=== PATIENT | male | born 1990 | race Caucasian/White ===

== ENCOUNTER 2021-12-13 18:51 | Inpatient (IN) | payer MEDICAID, OTHER ==
[~2021-12-13] VITALS: Ht 172.7 cm; Wt 90.7 kg
[2021-12-13] MEDS ORDERED: PHENOBARBITAL IV NR (20:30)
[2021-12-13] MEDS ORDERED: SODIUM CHLORIDE 0.9% IV NR (20:30)
[2021-12-13 20:49] LABS: BASOPHILS % 0.4 % (0.0-2.0); EOSINOPHILS % 0.4 % (0.0-5.0); HEMATOCRIT. 37.6 % (42.0-52.0); HEMOGLOBIN. 12.2 g/dL (14.0-18.0); LYMPHOCYTES % 8.7 % (20.0-50.0); MEAN CORPUSCULAR HEMOGLOBIN 25.1 pg (28.0-32.0); MEAN CORPUSCULAR VOLUME 77.3 fL (80.0-94.0); MEAN PLATELET VOLUME 9.4 fl (7.4-10.4); MONOCYTES % 10.4 % (2.0-8.0); NEUTROPHILS % 80.1 % (40.0-76.0); PLATELET 54 x1000/uL (130-400); RED BLOOD CELL COUNT 4.87 mill/uL (4.7-6.1); RED CELL DISTRIBUTION WIDTH 17.6 % (11.6-14.6)
[2021-12-13 20:53] LABS: CHLORIDE 90 mEq/L (98-107)
[2021-12-13 20:55] LABS: INR 1.2; PROTHROMBIN TIME 13.1 sec (9.6-11.0)
[2021-12-13 20:56] LABS: ETHANOL BLOOD < 10 mg/dL
[2021-12-13] MEDS ORDERED: LORAZEPAM 2MG/ML CPJ IV ONE ×2 (21:15→22:00)
[2021-12-13] MEDS: LORAZEPAM 2MG/ML CPJ IV NR ×2 (21:20→21:30)
[2021-12-13] MEDS ORDERED: POTASSIUM CHLORIDE INJ 40 MEQ in DEXT 5% WATER 250 ML IV ONE (21:45)
[2021-12-13] MEDS ORDERED: PHENOBARBITAL INJ 260 MG in SODIUM CHLORIDE 0.9% 100 ML IV NR (21:45)
[2021-12-13] MEDS: KCL 20MEQ/100ML X 2 FOR TOTAL KCL 40MEQ/200ML IV SCH ×2 (22:06→23:55)
[2021-12-13] MEDS ORDERED: HALOPERIDOL LACTATE 5MG/ML VIAL IM ONE (23:30)
[2021-12-13] MEDS ORDERED: MAGNESIUM 2 G PREMIX 50 ML IV ONE (23:30)
[2021-12-14] VITALS (7 sets, daily range): BP systolic 121–135; BP diastolic 70–80
[2021-12-14] MEDS: LORAZEPAM 2MG/ML CPJ IV PRN ×2 (02:13→18:10)
[2021-12-14] MEDS ORDERED: HYDROCODONE/ACETAMINOPHEN 10/325MG TABLET PO PRN (02:15)
[2021-12-14] MEDS ORDERED: NALOXONE HCL 0.4 MG/ML 1ML VIAL IV PRN (02:15)
[2021-12-14] MEDS ORDERED: MORPHINE SULFATE 2 MG/ML CPJ (NOT FOR IM USE) IV NR (08:15)
[2021-12-14] MEDS ORDERED: ONDANSETRON HCL 4MG/2ML INJ IV PRN (09:45)
[2021-12-14] MEDS ORDERED: LORAZEPAM 2MG/ML CPJ IV PRN (09:45)
[2021-12-14] MEDS ORDERED: ACETAMINOPHEN 325MG TABLET PO PRN (09:45)
[2021-12-14] MEDS: LEVETIRACETAM 1000MG PREMIX 100 ML IV SCH ×2 (10:12→21:40)
[2021-12-14] MEDS ORDERED: FOLIC ACID 1 MG, THIAMINE HCL 100 MG, MVI, ADULT NO.1 10 ML in DEXTROSE 5% WATER 1,000 ML IV ONE ×4 (10:15)
[2021-12-14 11:10] LABS: PHOSPHORUS 3.8 mg/dL (2.5-4.9)
[2021-12-14 12:10] LABS: *AMPHETAMINES SCREEN URINE NEGATIVE (NEGATIVE); *BARBITURATES SCREEN URINE PRESUMTIVE POSITIVE (NEGATIVE); *BENZODIAZEPINES SCREEN URINE NEGATIVE (NEGATIVE); *COCAINE SCREEN URINE NEGATIVE (NEGATIVE); METHADONE URINE SCREEN NEGATIVE (NEGATIVE); OPIATES URINE SCREEN PRESUMTIVE POSITIVE (NEGATIVE)
[2021-12-14 12:11] LABS: CANNABINOID URINE SCREEN NEGATIVE (NEGATIVE); PHENCYCLIDINE URINE SCREEN NEGATIVE (NEGATIVE)
[2021-12-14] MEDS: CHLORDIAZEPOXIDE 25MG CAPSULE PO SCH ×2 (13:44→21:39)
[2021-12-14] MEDS: POTASSIUM CHLORIDE 20MEQ TABLET SR PO SCH (20:28)
[2021-12-15] VITALS (15 sets, daily range): BP systolic 100–151; BP diastolic 42–82
[2021-12-15] MEDS: CHLORDIAZEPOXIDE 25MG CAPSULE PO SCH ×3 (05:22→21:17)
[2021-12-15 06:37] LABS: CHLORIDE 99 mEq/L (98-107)
[2021-12-15] MEDS: POTASSIUM CHLORIDE 20MEQ TABLET SR PO SCH (08:20)
[2021-12-15] MEDS: LEVETIRACETAM 1000MG PREMIX 100 ML IV SCH (10:41)
[2021-12-15] MEDS: LEVETIRACETAM 1,000 MG in SODIUM CHLORIDE 0.9% 100 ML IV SCH (21:06)
[2021-12-16] VITALS (10 sets, daily range): BP systolic 108–146; BP diastolic 50–88
[2021-12-16] MEDS: CHLORDIAZEPOXIDE 25MG CAPSULE PO SCH ×2 (06:24→12:07)
[2021-12-16] MEDS: LEVETIRACETAM 1,000 MG in SODIUM CHLORIDE 0.9% 100 ML IV SCH (08:50)
[2021-12-16] MEDS: POTASSIUM CHLORIDE 20MEQ TABLET SR PO SCH (08:51)
== END 2021-12-16 12:16 | disposition home or self-care (01) | DRG 53 ==
LOC: ER 18:51 → MICUSO 23:16 → 3WST 12-14 12:54
PROVIDERS: ADMIT Internal Medicine; ATTEND Internal Medicine
DX: R56.9 Unspecified convulsions (principal); D61.818 Other pancytopenia; E87.8 Other disorders of electrolyte and fluid balance, not elsewhere classified; E87.1 Hypo-osmolality and hyponatremia; E87.6 Hypokalemia; F10.239 Alcohol dependence with withdrawal, unspecified; S09.93XA Unspecified injury of face, initial encounter; X58.XXXA Exposure to other specified factors, initial encounter; Y93.89 Activity, other specified; Y92.89 Other specified places as the place of occurrence of the external cause; Y99.8 Other external cause status
CPT/HCPCS: 36415; 71045; 80048; 80305; 80320; 82962; 83735; 84100; 84132; 85025; 93005; 99291; J1630; J1953; J2060; J2270; J2560; J3411; J3475; J3480; J3490; J7050; J7060; J7070; G0480

== ENCOUNTER 2021-12-18 13:36 | Emergency (ER) | payer MEDICAID ==
[~2021-12-18] VITALS: Ht 167.6 cm; Wt 91.0 kg
[2021-12-18] MEDS ORDERED: METHYLPREDNISOLONE SOD SUCC 125 MG/2 ML VIAL IM STA (15:40)
[2021-12-18] MEDS ORDERED: FLUC150T5 PO (16:50)
[2021-12-18] MEDS ORDERED: MYCOC15 TP (16:50)
[2021-12-18] MEDS ORDERED: NAPR-681 PO (16:50)
[2021-12-18] MEDS ORDERED: DOXY100T28 PO (16:50)
[2021-12-18 17:21] VITALS: BP 106/84
== END 2021-12-18 17:22 | disposition home or self-care (01) ==
LOC: ER 13:36
DX: K14.0 Glossitis (principal); B37.0 Candidal stomatitis; S01.512A Laceration without foreign body of oral cavity, initial encounter; X58.XXXA Exposure to other specified factors, initial encounter; Y93.89 Activity, other specified; Y92.89 Other specified places as the place of occurrence of the external cause; Y99.8 Other external cause status
CPT/HCPCS: 93005; 96372; 99283; J2930

== ENCOUNTER 2021-12-27 08:22 | Emergency (ER) | payer MEDICAID ==
[~2021-12-27] VITALS: Ht 167.6 cm; Wt 88.0 kg
[~2021-12-27 08:22] MED LIST: DOXY100T28 PO; FLUC150T5 PO; MYCOC15 TP; NAPR-681 PO
[2021-12-27 08:54] LABS: BASOPHILS % 0.4 % (0.0-2.0); HEMATOCRIT. 35.7 % (42.0-52.0); HEMOGLOBIN. 11.6 g/dL (14.0-18.0); LYMPHOCYTES % 25.4 % (20.0-50.0); MEAN CORPUSCULAR VOLUME 79.7 fL (80.0-94.0); MEAN PLATELET VOLUME 7.9 fl (7.4-10.4); MONOCYTES % 12.9 % (2.0-8.0); NEUTROPHILS % 58.3 % (40.0-76.0); PLATELET 202 x1000/uL (130-400); RED BLOOD CELL COUNT 4.48 mill/uL (4.7-6.1); RED CELL DISTRIBUTION WIDTH 19.1 % (11.6-14.6)
[2021-12-27 09:02] LABS: CHLORIDE 109 mEq/L (98-107)
[2021-12-27 09:06] LABS: ETHANOL BLOOD < 10 mg/dL
[2021-12-27] MEDS ORDERED: CHLO473M2 MT (09:14)
[2021-12-27 09:30] VITALS: BP 129/82
== END 2021-12-27 09:52 | disposition home or self-care (01) ==
LOC: ER 08:46
DX: K13.79 Other lesions of oral mucosa (principal); G40.909 Epilepsy, unspecified, not intractable, without status epilepticus; R79.89 Other specified abnormal findings of blood chemistry; F10.10 Alcohol abuse, uncomplicated; Y90.0 Blood alcohol level of less than 20 mg/100 ml
CPT/HCPCS: 36415; 80053; 80320; 85025; 99283; G0480

== ENCOUNTER 2022-06-07 20:26 | Emergency (ER) | payer SELFPAY ==
[~2022-06-07] VITALS: Ht 167.6 cm; Wt 86.0 kg
[~2022-06-07 20:26] MED LIST changes: +CHLO473M2 MT; +FLUC150T46 PO; -FLUC150T5 PO; -MYCOC15 TP; +NYST15CR37 TP
[2022-06-07 20:43] VITALS: BP 149/104
[2022-07-09] MEDS ORDERED: HYDR-4001 MT (05:37)
== END 2022-06-08 01:46 | disposition left against medical advice (07) ==
LOC: ER 20:26
DX: Z53.21 Procedure and treatment not carried out due to patient leaving prior to being seen by health care provider (principal)
CPT/HCPCS: 99281